=== PATIENT | female | born 1960 | race African-American/Black ===

== ENCOUNTER 2024-12-08 20:01 | Emergency (ER) | payer MEDICARE, MEDICAID ==
[~2024-12-08] VITALS: Ht 167.6 cm; Wt 62.7 kg
[~2024-12-08 20:01] MED LIST: METH-552 PO
--- NOTE | 2024-12-08 20:34 | ED.PDOC ---
HPI Comments This is a 64 year old female presenting to the ED with chief complaint of palpitations. Patient reports that she has been experiencing palpitations with associated chest soreness and neck pain for the past 2 days. Patient relays that she had felt as if her heart had been racing since onset. Patient states that she has history of Hyperthyroidism, but has not been taking her medication recently. Patient denies any SOB, dizziness, N/V, or abdominal pain. Vital signs were stable. Chief Complaint: Palpitations Time Seen by MD: 20:31 Primary Care Provider: AVIVA Reviewed Notes: Nurses Notes, Medications, Allergies Allergies: Coded Allergies: NO KNOWN ALLERGIES (Unverified , 05/06/13) Home Meds Reported Medications Methimazole (Methimazole) 10 Mg Tab, 10 MG PO TID, TAB 08/11/13 Information Source: Patient Mode of Arrival: Ambulatory Severity: Moderate Timing: Days Duration: Since onset Prehospital treatment: None Location: Chest (L) Radiation: No Radiation Quality: Aching Onset: At Rest PE Risk Factors: None Associated Signs and Symptoms: Palpitations Past Medical History PAST MEDICAL HISTORY: Thyroid Surgical History: Denies all surgeries SERVICE ATTENDANT History: No Pertinent SERVICE ATTENDANT History Family History Family History: No family hx of DM, No family hx of HTN Social History Smoker: Non-Smoker Alcohol: Rarely Drugs: Denies Drug Use Lives In: Home Constitutional: denies: chills, diaphoresis, fatigue, fever, malaise, sweats, weakness, others EENTM: denies: blurred vision, double vision, ear bleeding, ear discharge, ear drainage, ear pain, ear ringing, eye pain, eye redness, hearing loss, mouth pain, mouth swelling, nasal discharge, nose bleeding, nose congestion, nose pain, photophobia, tearing, throat pain, throat swelling, voice changes, others Respiratory: denies: cough, hemoptysis, orthopnea, SOB at rest, shortness of breath, SOB with excertion, stridor, wheezing, others Cardiovascular: reports: chest pain, palpitations; denies: dizzy spells, diaphoresis, Dyspnea on exertion, edema, irregular heart beat, left arm pain, lightheadedness, PND, syncope, others Gastrointestinal: denies: abdomen distended, abdominal pain, blood streaked bowels, constipated, diarrhea, dysphagia, difficulty swallowing, hematemesis, melena, nausea, poor appetite, poor fluid intake, rectal bleeding, rectal pain, vomiting, others Genitourinary: denies: abnormal vagina bleeding, burning, dyspareunia, dysuria, flank pain, frequency, hematuria, incontinence, pain, , vagina discharge, urgency, others Neurological: denies: dizziness, fainting, headache, left sided numbness, left sided weakness, numbness, paresthesia, pre-existing deficit, right sided numbness, right sided weakness, seizure, speech problems, tingling, tremors, weakness, others Musculoskeletal: reports: neck pain; denies: back pain, gout, joint pain, joint swelling, muscle pain, muscle stiffness, others Integumetry: denies: bruises, change in color, change in hair/nails, dryness, laceration, lesions, lumps, rash, wounds, others Allergic/Immunocompromised: denies: Difficulty Healing, Frequent Infections, Hives, Itching, others Hematologic/Lymphatic: denies: anemia, blood clots, easy bleeding, easy bruising, swollen glands, others Endocrine: denies: excessive hunger, excessive sweating, excessive thirst, excessive urination, flushing, intolerance to cold, intolerance to heat, unexplained weight gain, unexplained weight loss, others Psychiatric: denies: anxiety, bipolar disorder, depression, hopeless, panic disorder, schizophrenia, sleepless, suicidal, others All Other Systems: Reviewed and Negative Physical Exam General Appearance: Mild Distress (Patient appears to be in only mild distress at time of evaluation due to concerns related to her earlier palpitation event.), Normal HEENT: Normal ENT Inspection, Pharynx Normal, TMs Normal Neck: Full Range of Motion, Non-Tender, Normal, Normal Inspection Respiratory: Chest Non-Tender, Lungs Clear, No Accessory Muscle Use, No Respiratory Distress, Normal Breath Sounds Cardiovascular: No Edema, No JVD, No Murmur, No Gallop, Normal Peripheral Pulses, Regular Rate/Rhythm, Other (Unremarkable cardiac evaluation.) Breast Exam: Deferred Gastrointestinal: No Organomegaly, Non Tender, No Pulsatile Mass, Normal Bowel Sounds, Soft Genitalia: Deferred Pelvic: Deferred Rectal: Deferred Extremities: No calf tenderness, Normal capillary refill, Normal inspection, Normal range of motion, Non-tender, No pedal edema Neurologic: Alert, No Motor Deficits, Normal Affect, Normal Mood, No Sensory Deficits Cerebellar Function: Normal Reflexes: Normal Skin: Dry, Normal Color, Warm Lymphatic: No Adenopathy Was a procedure done? Was a procedure done?: No CP Differential Dx Differential Diagnosis: A-fib, Angina, AV Block 1st Degree, AV Block 2nd Degree, CT, PVC's, V-Fib X-Ray, Labs, Meds, VS Vital Signs Date Time Temp Pulse Resp B/P (MAP) Pulse Ox O2 Delivery O2 Flow Rate FiO2 12/08/24 20:03 98.7 87 16 126/56 98 98.7 Lab Test 12/08/24 20:25 Range/Units White Blood Count 7.4 4.4-10.8 10^3/uL Red Blood Count 4.68 4.0-5.20 10^6/uL Hemoglobin 15.7 12.2-16.2 g/dL Hematocrit 44.6 36.0-46.0 % Mean Corpuscular Volume 95.3 80.0-100.0 fL Mean Corpuscular Hemoglobin 33.5 H 28.0-32.0 pg Mean Corpuscular Hemoglobin Concent 35.2 32.0-36.0 g/dL Red Cell Distribution Width 13.0 11.8-14.3 % Platelet Count 270 140-450 10^3/uL Mean Platelet Volume 8.7 6.9-10.8 fL Neutrophils (%) (Auto) 55.5 37.0-80.0 % Lymphocytes (%) (Auto) 37.0 10.0-50.0 % Monocytes (%) (Auto) 5.9 0.0-12.0 % Eosinophils (%) (Auto) 0.8 0.0-7.0 % Basophils (%) (Auto) 0.8 0.0-2.0 % Neutrophils # (Auto) 4.1 1.6-8.6 10 ^3/uL Lymphocytes # (Auto) 2.7 0.4-5.4 10 ^3/uL Monocytes # (Auto) 0.4 0-1.3 10 ^3/uL Eosinophils # (Auto) 0.1 0-0.8 10 ^3/uL Basophils # (Auto) 0.1 0-0.2 10 ^3/uL Nucleated Red Blood Cells 0.1 % Sodium Level 144 136-145 mmol/L Potassium Level 3.6 3.5-5.1 mmol/L Chloride Level 110 H 98-107 mmol/L Carbon Dioxide Level 27 20-31 mmol/L Anion Gap 7 5-15 Blood Urea Nitrogen 14 9-23 mg/dL Creatinine 0.84 0.550-1.02 mg/dL Glomerular Filtration Rate Calc 79 >90 mL/min BUN/Creatinine Ratio 16.7 10.0-20.0 Serum Glucose 77 74-106 mg/dL Calcium Level 8.8 8.7-10.4 mg/dL Troponin I High Sensitivity < 3 L </=34 ng/L Thyroid Stimulating Hormone (TSH) 0.32 L 0.55-4.78 uIU/mL X-Ray, Labs, Meds, VS Comment All studies performed the ED were evaluated by me personally. Urine was never provided by patient after several hours of request. Serum studies were unremarkable for any acute systemic concerns including unremarkable cardiac markers. Patient's TSH was only mildly reduced. EKG revealed a sinus rhythm with a rate of 72. Probable left atrial enlargement as well as borderline right axis deviation noted. IN interval of 176 and QT interval 408. Unknown as to the cause of the patient's palpitation concerns. Advised patient follow up with the primary care provider for cardiac referral and evaluation as needed. Time of 1ST Reevaluation: 23:13 Reevaluation 1ST: Improved Consultation: PCP, Cardiology Patient Education/Counseling: Diagnosis, Treatment Family Education/Counseling: Diagnosis, Treatment, No Family Present SEPSIS Sepsis Screen Date sepsis recognized/suspect: Dec 08, 2024 Time Sepsis recognized/suspect: 2002 Recent Procedure: No On Antibiotic Therapy: No Respiratory Rate >20: No Heart Rate >90: No Temp<36 C (96.8 F) or >38.3 C: No SBP <90 or MAP <65 mmHG: No New Acute Mental Status Change: No Is the patient on CPAP, BIPAP,: No Physician Orders Electrocardigram (12/08/24 20:02) Urinalysis (12/08/24 20:27) Drug Screen (12/08/24 20:27) Vital Signs Date Time Temp Pulse Resp B/P (MAP) Pulse Ox O2 Delivery O2 Flow Rate FiO2 12/08/24 20:03 98.7 87 16 126/56 98 98.7 Laboratory Tests Test 12/08/24 20:25 White Blood Count 7.4 10^3/uL (4.4-10.8) Departure 1 Departure Time of Disposition: 23:14 Impression: Primary Impression: acute palpitations Disposition: HOME / SELF CARE / HOMELESS Condition: Stable Additional Instructions: Advised patient to follow up with the primary care provider for discussions r elated to her palpitation concerns as well as other comorbidities that need to have improved management. Discharged With: Self, Friend Critical Care Note Critical Care Time?: No Stability Stability form required: No Heart Score Heart Score: Heart Score Response (Comments) Value History Moderate Suspicious 1 EKG Normal 0 Age 45-64 1 Risk Factors 1 or 2 risk factors 1 Troponin Normal limit 0 Total 3 I personally scribed for ALENA WASSERMAN PAC ([email or web address]) on 12/08/24 at 20:34. Electronically submitted by Pierce Estes ([email or web address]). ALENA WASSERMAN PAC Dec 08, 2024 20:34
[2024-12-08 21:19] LABS: Anion Gap 7 (5-15); Carbon Dioxide 27 mmol/L (20-31); Potassium 3.6 mmol/L (3.5-5.1); Sodium 144 mmol/L (136-145)
[2024-12-08 21:20] LABS: Calcium 8.8 mg/dL (8.7-10.4)
[2024-12-08 21:24] LABS: Glucose 77 mg/dL (74-106)
[2024-12-08 21:25] LABS: BUN/Creatinine Ratio 16.7 (10.0-20.0); Blood Urea Nitrogen 14 mg/dL (9-23); Chloride 110 mmol/L (98-107)
[2024-12-08 21:35] LABS: Hematocrit 44.6 % (36.0-46.0); Hemoglobin 15.7 g/dL (12.2-16.2); Mean Corpuscular Hemoglobin 33.5 pg (28.0-32.0); Mean Corpuscular Volume 95.3 fL (80.0-100.0); Nucleated Red Blood Cells % 0.1 %
[2024-12-08 23:40] LABS: Urine Protein, UAD Negative (Negative)
[2024-12-08 23:54] LABS: Amphetamine Screen, Urine Neg (NEGATIVE)
[2024-12-09 00:09] LABS: Barbiturate Scree,Urine Neg (NEGATIVE); Benzodiazephine Screen, Urine Neg (NEGATIVE); Cannabinoid Screen, Urine Neg (NEGATIVE); Cocaine Screen, Urine Neg (NEGATIVE); Opiate Scree,Urine Neg (NEGATIVE); Phencyclidine Screen, Urine Neg (NEGATIVE)
[2024-12-09 00:17] VITALS: BP 144/72; PULSE 71; RESP 12; TEMP 98.9
[2024-12-09 00:18] VITALS: O2SAT 98
--- NOTE | 2024-12-09 06:33 | ECG ---
[facility] Test Date: 2024-12-08 Test Time: 20:17:26 Pat Name: COLIN MELENDEZ Department: ED Room: Gender: F Flight Steward: DENA : 1960 Requested By: DEVYN JUSTIN Order Number: [id number] Reading MD: Measurements Intervals [place] Rate: 72 P: 83 LA: 176 QRS: 82 QRSD: 85 T: 57 QT: 408 QTc: 447 Interpretive Statements Sinus rhythm Probable left atrial enlargement Borderline right axis deviation Baseline wander in lead(s) V4 Please click the below link to view image of tracing.
== END 2024-12-09 00:19 | disposition home or self-care (01) ==
LOC: ER 20:01
DX: R00.2 Palpitations (principal); F10.90 Alcohol use, unspecified, uncomplicated; Y90.9 Presence of alcohol in blood, level not specified
CPT/HCPCS: 36415; 80048; 80307; 81001; 84443; 84484; 85025; 93005